=== PATIENT | female | born 1980 | race Caucasian/White ===

== ENCOUNTER 2016-12-12 13:48 | Emergency (ER) | payer OTHER ==
[2016-12-12 14:45] VITALS: BP 109/66
--- NOTE | 2016-12-12 15:30 | UC ---
Complaint Female HPI - HPI Summary HPI Summary: Urinary Pain and burning for 2 days - History Of Current Complaint Chief Complaint: UCGU Stated Complaint: URINARY COMPLAINT Time Seen by Provider: 12/12/16 15:21 Hx Obtained From: Patient Hx Last Menstrual Period: 12/04/16 ?: No Onset/Duration: Sudden Onset, Lasting Days - 2 Timing: Constant Severity Initially: Moderate Severity Currently: Moderate Character: Burning Aggravating Factor(s): Urination Alleviating Factor(s): Nothing Associated Signs And Symptoms: Positive: Negative - Allergies/Home Medications Allergies/Adverse Reactions: Allergies Allergy/AdvReac Type Severity Reaction Status Date / Time Hydrocodone [From Vicodin] Allergy Shortness Verified 12/12/16 14:46 of Breath Iodine Allergy Hives Verified 12/12/16 14:46 Penicillins Allergy Rash Verified 12/12/16 14:46 Povidone Iodine Allergy Hives Verified 12/12/16 14:46 [From Betadine] augmentin Allergy Hives/Diff. Uncoded 12/12/16 14:47 Breathing/I tching PMH/Surg Hx/FS Hx/Imm Hx Previously Healthy: Yes - Surgical History Surgical History: Yes Surgery Procedure, Year, and Place: CSECTION X 2, TUBAL - Family History Known Family History: Positive: None - Social History Occupation: Unemployed Lives: With Family Alcohol Use: None Substance Use Type: None Smoking Status (MU): Former Smoker When Did the Patient Quit Smoking/Using Tobacco: 2009 Review of Systems Constitutional: Negative Skin: Negative Eyes: Negative ENT: Negative Respiratory: Negative Cardiovascular: Negative Gastrointestinal: Negative Genitourinary: Dysuria, Hematuria, Frequency, Urgency Motor: Negative Neurovascular: Negative Musculoskeletal: Negative Neurological: Negative Psychological: Negative Is Patient Immunocompromised?: No All Other Systems Reviewed And Are Negative: Yes Physical Exam Triage Information Reviewed: Yes Appearance: Well-Appearing, No Pain Distress, Well-Nourished Vital Signs: Initial Vital Signs Temp 98 F 12/12/16 14:33 Pulse 57 12/12/16 14:33 Resp 20 12/12/16 14:33 BP 109/66 12/12/16 14:33 Vital Signs Reviewed: Yes Eye Exam: Normal Eyes: Positive: Conjunctiva Clear ENT Exam: Normal ENT: Positive: Normal ENT inspection, Hearing grossly normal, TMs normal. Negative: Nasal congestion, Nasal drainage, Trismus, Muffled/hoarse voice Dental Exam: Normal Neck exam: Normal Neck: Positive: Supple, Nontender Respiratory Exam: Normal Respiratory: Positive: Chest non-tender, No respiratory distress, No accessory muscle use Cardiovascular Exam: Normal Cardiovascular: Positive: RRR, Pulses Normal, Brisk Capillary Refill Abdominal Exam: Normal Abdomen Description: Positive: Nontender, No Organomegaly, Soft. Negative: CVA Tenderness (R), CVA Tenderness (L) Bowel Sounds: Positive: Present Musculoskeletal Exam: Normal Musculoskeletal: Positive: Strength Intact, ROM Intact Neurological Exam: Normal Neurological: Positive: Alert Psychological Exam: Normal Skin Exam: Normal Diagnostics - Laboratory Diagnostic Studies Completed/Ordered: ua-+2 blood and +2 leukoesterase Complaint Female Dx - Course Course Of Treatment: macrobid, increase fluids, pyridium culture urine follow with pcp prn - Differential Dx/Diagnosis Differential Diagnosis/HQI/PQRI: Renal Colic, Sexually Transmitted Disease, Urinary Tract Infection Provider Diagnoses: UTI Discharge - Discharge Plan Condition: Stable Disposition: HOME Prescriptions: Nitrofurantoin Monohyd Macro [Macrobid] 100 mg PO BID #20 cap Patient Education Materials: Phenazopyridine (By mouth), Urinary Tract Infection in Women (ED) Referrals: Lucila SCHILLING,Ga Horan [Physician Transitional Nurse] - If Needed
== END 2016-12-12 15:37 | disposition home or self-care (01) ==
LOC: UCCORT 13:48
DX: N39.0 Urinary tract infection, site not specified (principal); Z88.3 Allergy status to other anti-infective agents; Z88.5 Allergy status to narcotic agent; Z88.0 Allergy status to penicillin; Z87.891 Personal history of nicotine dependence
CPT/HCPCS: 81003; 87086; 99212; G0463

== ENCOUNTER 2017-08-04 09:31 | Emergency (ER) | payer OTHER ==
[2017-08-04 09:54] VITALS: BP 106/60
--- NOTE | 2017-08-04 10:21 | UC ---
Complaint Female HPI - HPI Summary HPI Summary: Pt c/o of recurring vaginal discomfort, pain with urination, odiferous discharge , and pain with sexual intercourse X 1 year. 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 Denies exposure to STD's denies lesions or sores. Denies frequency and urgency with urination. - History Of Current Complaint Chief Complaint: UCGU Stated Complaint: PERSONAL Hx Obtained From: Patient Hx Last Menstrual Period: 07/08/17 ?: No Onset/Duration: Gradual Onset, Lasting Weeks, Still Present Timing: Intermittent, Lasting Weeks Severity Initially: Mild Severity Currently: Mild Pain Intensity: 1 Character: Dull, Burning Aggravating Factor(s): Loco, Urination Alleviating Factor(s): Meds - previously prescribed Associated Signs And Symptoms: Positive: Vaginal Discharge - Risk Factors Ectopic Risk Factor: Negative Ovarian Torsion Risk Factor: Reproductive Age - Allergies/Home Medications Allergies/Adverse Reactions: Allergies Allergy/AdvReac Type Severity Reaction Status Date / Time hydrocodone Allergy Shortness Verified 08/04/17 09:59 of Breath Iodine and Iodide Containing Allergy Hives Verified 08/04/17 09:59 Produc Penicillins Allergy Rash Verified 08/04/17 09:59 augmentin Allergy Hives/Diff. Uncoded 08/04/17 09:59 Breathing/I tching Home Medications: Home Medications L.acidoph,Paracasei, B.lactis [Probiotic] 1 each PO DAILY 08/04/17 [History Confirmed 08/04/17] PMH/Surg Hx/FS Hx/Imm Hx Previously Healthy: Yes - Surgical History Surgical History: Yes Surgery Procedure, Year, and Place: CSECTION X 2, TUBAL - Family History Known Family History: Positive: Cardiac Disease - Social History Occupation: Employed Full-time Lives: With Family Alcohol Use: None Substance Use Type: None Smoking Status (MU): Former Smoker Have You Smoked in the Last Year: No When Did the Patient Quit Smoking/Using Tobacco: 2009 Review of Systems Constitutional: Negative Skin: Negative Eyes: Negative ENT: Negative Respiratory: Negative Cardiovascular: Negative Gastrointestinal: Negative Genitourinary: Dysuria, Vaginal/Penile Burning, Vaginal/Penile Discharge Motor: Negative Neurovascular: Negative Musculoskeletal: Negative Neurological: Negative Psychological: Negative Is Patient Immunocompromised?: No All Other Systems Reviewed And Are Negative: Yes Physical Exam Triage Information Reviewed: Yes Appearance: Well-Appearing Vital Signs: Initial Vital Signs Temp 97.9 F 08/04/17 09:45 Pulse 59 08/04/17 09:45 Resp 17 08/04/17 09:45 BP 106/60 08/04/17 09:45 Pulse Ox 99 08/04/17 09:45 Vital Signs Reviewed: Yes Eye Exam: Normal ENT Exam: Normal Dental Exam: Normal Neck exam: Normal Respiratory: Positive: No respiratory distress Abdominal Exam: Normal Pelvic Exam: Positive: Other - declined Musculoskeletal Exam: Normal Neurological Exam: Normal Psychological Exam: Normal Skin Exam: Normal Complaint Female Dx - Course Course Of Treatment: 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 Pt agreed to all testing and agreed to do self swab for Affirm. - Differential Dx/Diagnosis Differential Diagnosis/HQI/PQRI: Urinary Tract Infection Provider Diagnoses: vaginitis Discharge - Sign-Out/Discharge Documenting (check all that apply): Discharge/Admit/Transfer - Discharge Plan Condition: Stable Disposition: HOME Prescriptions: metroNIDAZOLE VAGINAL 0.75%* 1 applic VAGINAL BEDTIME #5 tube Patient Education Materials: Vaginitis (ED) Referrals: No Primary Care Phys,NOPCP [Primary Care Provider] - If Needed - Billing Disposition and Condition Condition: STABLE Disposition: HOME
== END 2017-08-04 10:58 | disposition home or self-care (01) ==
LOC: UCCORT 09:31
DX: N76.0 Acute vaginitis (principal); B96.89 Other specified bacterial agents as the cause of diseases classified elsewhere; Z88.3 Allergy status to other anti-infective agents; Z88.5 Allergy status to narcotic agent; Z88.0 Allergy status to penicillin; Z88.8 Allergy status to other drugs, medicaments and biological substances; Z87.891 Personal history of nicotine dependence
CPT/HCPCS: 81003; 87480; 87491; 87510; 87591; 87660; 99212; G0463

== ENCOUNTER 2018-01-03 14:06 | Emergency (ER) | payer OTHER ==
--- OUTSIDE RECORDS SUMMARY | 2018-01-03 14:15 | XMS REPORT ---
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 Unavailable Ainsley Mccauley MD Primary Care Physician Unavailable Payers Type Date Identification Numbers Payment Provider Subscriber Workers Compensation Onset: Policy Number: Alec Valdez 2017 [id number] PayID: [id number] [address] [place] [address] Problems Description No Information Family History Date Family Member(s) Problem(s) Comments General Stroke General Cancer Social History Type Date Description Comments Lives With Spouse Occupation Currently Working [employer] ETOH Use Denies alcohol use Smoking Patient has never smoked Exercise Type/Frequency Exercises sporadically Allergies, Adverse Reactions, Alerts Date Description Reaction Status Severity Comments 11/06/2017 Vicodin active 11/06/2017 Augmentin active 11/06/2017 Penicillin active 11/06/2017 Betadine active 11/06/2017 Lidocaine active topical only Medications Medication Date Status Form Strength Qnty SIG Indications Ordering Provider Ibuprofen 12/26/19 Active Tablets 600mg 90tabs 1 tab Blair Ipson, 18 three PA times a day as needed pain Prozac Active Capsules 20mg 1 by mouth Unknown 00 every day Vital Signs Date Vital Result Comment 12/25/2017 Height 66 inches 5'6" Weight 150.00 lb BP Systolic Sitting 102 mmHg BP Diastolic Sitting 62 mmHg Respiratory Rate 16 /min Pain Level 3 BMI (Body Mass Index) 24.2 kg/m2 11/06/2017 Height 66 inches 5'6" Weight 150.00 lb BP Systolic Sitting 124 mmHg BP Diastolic Sitting 68 mmHg Respiratory Rate 18 /min Pain Level 3 numbness occassionally BMI (Body Mass Index) 24.2 kg/m2 Results Description No Information Procedures Description No Information Encounters Type Date Location Provider CPT E/M Dx Office Visit 11/06/2017 [place] [address] M24.831 1:15p [facility] [place] M24.831 M25.531 M25.531 M24.831 Plan of Care Future Appointment(s):02/05/2018 11:00 am - Anand Antoine MD at [facility]
--- OUTSIDE RECORDS SUMMARY | 2018-01-03 14:15 | XMS REPORT ---
:1980 External Reference #:[id number] Author Organization [facility] Address [address] [place] [address] Phone [phone] Care Team Providers Name Role Phone Rubens Dorado M.D. 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 Payers Type Date Identification Numbers Payment Provider Subscriber Workers Compensation Effective: Policy Number: Serina Valdez 2017 [id number] Onset: 2017 Group Name: [address] PayID: [id number] [place] [address] Commercial Policy Number: [id number] [employer] Rosalia Valdez PayID: [id number] [address] [place] [address] Problems Date Description Provider Status Onset: 11/05/2017 Contusion of elbow Bhavana Bettencourt PA Active Onset: 10/22/2017 Contusion of wrist Bhavana Bettencourt PA Active Onset: 10/22/2017 Sprain of radiocarpal ligament Bhavana Bettencourt PA Active Onset: 03/06/2015 Arthralgia of the ankle and/or Rubens Dorado M.D. Active foot Onset: 04/05/2014 Liver function tests abnormal Louis De León Active M.D. Onset: 03/08/2014 Enthesopathy of knee Kendall Hart MD, JULIETA Active Onset: 02/24/2014 Pes planus Kendall Hart MD, JULIETA Active Onset: 02/24/2014 Enthesopathy Kendall Hart MD, JULIETA Active Onset: 08/23/2012 Fracture therapy follow-up Kendall Hart MD, JULIETA Active Onset: 07/30/2012 Aftercare For Healing Traumatic Kendall Hart MD, JULIETA Active Fracture Of Other Bone Onset: 07/09/2012 Closed fracture of lateral Kendall Hart MD, JULIETA Active malleolus Onset: 03/25/2012 Neck sprain Daryn Yung MD Active Family History Date Family Member(s) Problem(s) Comments General Cancer siblings Father Cancer Mother Cancer Grandfather Cancer Grandmother Cancer Social History Type Date Description Comments Lives With Children Saul and Annad Lives With Maren Murray Patient follows no dietary restrictions 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 Working [employer] Cigarette Use Quit ETOH Use Has consumed alcohol in the past Recreational Drug Use Former Drug User Daily Caffeine Current Caffeine User Daily Allergies, Adverse Reactions, Alerts Date Description Reaction Status Severity Comments 03/25/2012 Iodine active 03/25/2012 Betadine active 03/25/2012 Hydrocodone active resp depression c half tab 10/08/2017 Penicillin active 10/08/2017 Augmentin active 10/08/2017 Shellfish-Derived active Products 10/08/2017 Vicodin active Medications Medication Date Status Form Strength Qnty SIG Indications Ordering Provider Fluoxetine HCL / Active Capsules 20mg 30cap 1 by Unknown 0000 s mouth every morning and 1 at noon Meloxicam 06/21/ Hx Tablets 15mg 30tab 1 po q Hailey, 2013 day c Kendall Horan, 02/24/ JULIETA GOTTI 2013 Ibuprofen 00/00/ Hx 600mg Unknown 0000 Metronidazole 0000/ Hx 500mg Unknown 0000 Terbutaline / Hx 2.5mg Lauri, Sulfate 0000 Jacqueiline R, ENVIRONMENTAL COMPLIANCE INSPECTOR PNV-Dha 00/00/ Hx 27-0.6-0.4 Unknown 0000 -300mg Prenate Dha 00/00/ Hx 27-0.6-0.4 Unknown 0000 -300mg Prozac 00/00/ Hx Capsules 1 po qd Unknown 0000 Naproxen 00/00/ Hx Tablets DR Unknown 0000 Control 00/00/ Hx Unknown 0000 - 2012 Muscle Relaxer /00/ Hx Unknown 0000 Flexeril 00/00/ Hx Tablets 10mg Unknown 0000 Fluoxetine HCL 00/ Hx Capsules 10mg 30cap 1 po qd Unknown - s 2017 00/ Hx Tablets 27-0.8mg Unknown 0000 - 2013 Iron 100 Plus / Hx Tablets 100-250-0. Unknown 0000 - 025-1mg 2013 Vital Signs Date Vital Result Comment 11/05/2017 BP Systolic Sitting Right Arm 90 mmHg BP Diastolic Sitting Right Arm 61 mmHg Body Temperature 98.2 F Heart Rate 81 /min Respiratory Rate 17 /min Height 69 inches 5'9" Weight 150.00 lb BMI (Body Mass Index) 22.1 kg/m2 BSA (Body Surface Area) 1.83 m2 Norris body weight in kilograms 66 O2 % BldC Oximetry 97 % 10/22/2017 BP Systolic Sitting Right Arm 99 mmHg BP Diastolic Sitting Right Arm 67 mmHg Body Temperature 98.6 F Heart Rate 60 /min Height 69 inches 5'9" Weight 153.00 lb BMI (Body Mass Index) 22.6 kg/m2 BSA (Body Surface Area) 1.84 m2 Norris body weight in kilograms 66 O2 % BldC Oximetry 96 % 10/08/2017 BP Systolic Sitting Left Arm 95 mmHg BP Diastolic Sitting Left Arm 67 mmHg Body Temperature 98.3 F Heart Rate 57 /min Respiratory Rate 17 /min Height 69 inches 5'9" Weight 152.00 lb BMI (Body Mass Index) 22.4 kg/m2 BSA (Body Surface Area) 1.84 m2 Norris body weight in kilograms 66 O2 % BldC Oximetry 98 % 01/15/2015 BP Systolic Sitting Right Arm 98 mmHg BP Diastolic Sitting Right Arm 61 mmHg Heart Rate 74 /min Height 69 inches 5'9" Weight 137.00 lb BMI (Body Mass Index) 20.2 kg/m2 BSA (Body Surface Area) 1.76 m2 04/05/2014 Height 66 inches 5'6" Weight 136.00 lb BMI (Body Mass Index) 21.9 kg/m2 BSA (Body Surface Area) 1.70 m2 03/25/2012 BP Systolic Sitting Left Arm 104 mmHg BP Diastolic Sitting Left Arm 60 mmHg Height 67 inches 5'7" Weight 139.00 lb BMI (Body Mass Index) 21.8 kg/m2 Results Description No Information Procedures Date CPT Code Description Status 11/05/2017 30221 Radiology, Elbow Complete Completed 06/23/2016 20546 Echocardiogram Complete Completed 08/28/2015 86850 Nerve Conduction 5-6 Studies Completed 08/28/2015 33345 Needle Electromyography Complete, Five Or More Muscles Completed Studied 07/05/2015 11919 Radiology, Foot, Complete-3 Views Completed 07/05/2015 76999 Radiology, Foot, Complete-3 Views Completed 01/15/2015 36110 Radiology, Ankle Complete Completed 03/08/2014 38339 Radiology, Knee 3 Views Completed 02/24/2014 12266 Radiology, Ankle Complete Completed 06/21/2013 44432 Radiology, Shoulder: Two Views (Sso) Completed 06/21/2013 58229 Radiology, Shoulder: Two Views (Sso) Completed 05/20/2013 61388 Anesthesia, Delivery Completed 08/23/2012 26199 Radiology, Ankle Complete Completed 07/09/2012 89788 Fracture closed distal fib w/o manipulation Completed Encounters Type Date Location Provider CPT E/M Dx Office Visit 11/05/2017 1:30p [place] [address] M25.521 S63.521D S50.01xA Office Visit 10/22/2017 9:00a [place] [address] S63.521A S60.211A Office Visit 10/08/2017 10:00a Orthopaedic Office Rubens Dorado M.D. 80088 M25.531 Office Visit 09/10/2015 1:30p Orthopaedic Office Rubens Dorado M.D. 07940 M25.571 Office Visit 07/05/2015 11:15a Orthopaedic Office Rubens Dorado M.D. 02105 M25.571 M25.572 Office Visit 03/06/2015 1:00p Orthopaedic Office Rubens Dorado M.D. 48072 M25.571 Office Visit 01/15/2015 11:15a Orthopaedic Office Rubens Dorado M.D. 06880 M25.571 Office Visit 04/05/2014 9:30a Surgical Office [facility] 52173 794.8 Louis Dawn M.D. Office Visit 03/08/2014 10:00a Orthopaedic Office Kendall Hart, [address] 719.46 , FACS 726.60 Office Visit 02/24/2014 11:15a [place], [address] 726.90 [facility] 734 824.2 Office Visit 06/21/2013 10:30a Orthopaedic Office Cindy GoddardJojo, [address]36 726.10 [facility] 719.41 Office Visit 03/25/2012 11:00a [place] [address] 847.0 Office Visit 02/20/2009 10:30a [place] [address] 723.4 726.90 Plan of Care 11/05/2017 - Bhavana Bettencourt, PAM25.521 Pain in right elbowComments:Patient will proceed with activities as tolerated with the elbow, should be cautious with lifting. I did provide her with an Nic wrap to see if compression was helpful.Follow up:prnS63.521D Sprain of radiocarpal joint of right wrist, subs encntrComments:Patient is still having a lot of pain that is not resolving in the wrist. With the findings on the MRI I am recommending referral to hand surgery to see if surgery is indicated. Return to our office as needed.S50.01xA Contusion of right elbow, initial encounterAllReferral:Anand Antoine MD, Surgery,Orthopedic
[2018-01-03 14:42] VITALS: BP 100/60
--- NOTE | 2018-01-03 15:34 | UC ---
Complaint Female HPI - HPI Summary HPI Summary: awoke with pain and burning with urination also has hematuria no fevers chills nausea or vomiting - History Of Current Complaint Chief Complaint: UCGU Stated Complaint: URINARY COMPLAINT Time Seen by Provider: 01/03/18 15:14 Hx Obtained From: Patient Hx Last Menstrual Period: 12/21/17 ?: No Onset/Duration: Sudden Onset, Lasting Days - 1, Still Present Timing: Constant Severity Initially: Mild Severity Currently: Mild Character: Burning Aggravating Factor(s): Urination Alleviating Factor(s): Nothing Associated Signs And Symptoms: Positive: Negative - Allergies/Home Medications Allergies/Adverse Reactions: Allergies Allergy/AdvReac Type Severity Reaction Status Date / Time hydrocodone Allergy Shortness Verified 01/03/18 14:38 of Breath Iodine and Iodide Containing Allergy Hives Verified 01/03/18 14:38 Produc Penicillins Allergy Rash Verified 01/03/18 14:38 augmentin Allergy Hives/Diff. Uncoded 01/03/18 14:38 Breathing/I tching PMH/Surg Hx/FS Hx/Imm Hx Previously Healthy: No Psychological History: Depression - Surgical History Surgical History: Yes Surgery Procedure, Year, and Place: CSECTION X 2, TUBAL - Family History Known Family History: Positive: None, Cardiac Disease - Social History Occupation: Employed Full-time Lives: With Family Alcohol Use: None Substance Use Type: None Smoking Status (MU): Former Smoker Have You Smoked in the Last Year: No When Did the Patient Quit Smoking/Using Tobacco: 2009 Review of Systems Constitutional: Negative Skin: Negative Eyes: Negative ENT: Negative Respiratory: Negative Cardiovascular: Negative Gastrointestinal: Negative Genitourinary: Dysuria, Hematuria, Frequency, Urgency Motor: Negative Neurovascular: Negative Musculoskeletal: Negative Neurological: Negative Psychological: Negative Is Patient Immunocompromised?: No All Other Systems Reviewed And Are Negative: Yes Physical Exam Triage Information Reviewed: Yes Appearance: Well-Appearing, No Pain Distress, Well-Nourished Vital Signs: Initial Vital Signs Temp 97.4 F 01/03/18 14:37 Pulse 65 01/03/18 14:37 Resp 14 01/03/18 14:37 BP 100/60 01/03/18 14:37 Pulse Ox 100 01/03/18 14:37 Vital Signs Reviewed: Yes Eye Exam: Normal Eyes: Positive: Conjunctiva Clear ENT Exam: Normal ENT: Positive: Normal ENT inspection, Hearing grossly normal, Pharynx normal. Negative: Nasal congestion, Trismus, Muffled voice, Hoarse voice Dental Exam: Normal Neck exam: Normal Neck: Positive: Supple, Nontender, No Lymphadenopathy Respiratory Exam: Normal Respiratory: Positive: Chest non-tender, No respiratory distress, No accessory muscle use Cardiovascular Exam: Normal Cardiovascular: Positive: RRR, Pulses Normal, Brisk Capillary Refill Abdominal Exam: Normal Abdomen Description: Negative: CVA Tenderness (R), CVA Tenderness (L) Musculoskeletal Exam: Normal Musculoskeletal: Positive: Strength Intact, ROM Intact Neurological Exam: Normal Neurological: Positive: Alert, Muscle Tone Normal Psychological Exam: Normal Skin Exam: Normal Complaint Female Dx - Course Course Of Treatment: culture urine, increase fluids, macrobid and pyridium follow with pcp next week - Differential Dx/Diagnosis Provider Diagnoses: UTI Discharge - Sign-Out/Discharge Documenting (check all that apply): Patient Departure All imaging exams completed and their final reports reviewed: No Studies - Discharge Plan Condition: Stable Disposition: HOME Prescriptions: Nitrofurantoin Monohyd/M-Cryst [Macrobid 100 mg Capsule] 100 mg PO BID #10 cap Phenazopyridine TAB* [Pyridium 100 mg TAB*] 100 mg PO TID PRN #6 tab PRN Reason: urinary pain and burning Patient Education Materials: Phenazopyridine (By mouth), Urinary Tract Infection in Women (ED) Referrals: No Primary Care Phys,NOPCP [Primary Care Provider] - SAÚL Mcginnis [Family Provider] - 1 Week - Billing Disposition and Condition Condition: STABLE Disposition: Home
--- NOTE | 2018-01-06 08:19 | UC ---
- Progress Note Progress Note: + E coli On Macrobid await sensitivity Lj 01/06/18 Discharge - Sign-Out/Discharge Documenting (check all that apply): Post-Discharge Follow Up All imaging exams completed and their final reports reviewed: No Studies - Discharge Plan Condition: Stable Disposition: HOME Prescriptions: Nitrofurantoin Monohyd/M-Cryst [Macrobid 100 mg Capsule] 100 mg PO BID #10 cap Phenazopyridine TAB* [Pyridium 100 mg TAB*] 100 mg PO TID PRN #6 tab PRN Reason: urinary pain and burning Patient Education Materials: Phenazopyridine (By mouth), Urinary Tract Infection in Women (ED) Referrals: SAÚL Mcginnis [Family Provider] - 1 Week No Primary Care Phys,NOPCP [Primary Care Provider] - - Billing Disposition and Condition Condition: STABLE Disposition: Home
== END 2018-01-03 15:40 | disposition home or self-care (01) ==
LOC: UCCORT 14:06
DX: N39.0 Urinary tract infection, site not specified (principal); Z88.5 Allergy status to narcotic agent; Z88.0 Allergy status to penicillin; Z88.1 Allergy status to other antibiotic agents; Z87.891 Personal history of nicotine dependence
CPT/HCPCS: 81003; 84702; 87077; 87086; 87186; 99212; G0463

== ENCOUNTER 2018-01-17 13:05 | Emergency (ER) | payer OTHER ==
[2018-01-17 13:19] VITALS: BP 103/57
--- NOTE | 2018-01-17 14:38 | UC ---
Complaint Female HPI - HPI Summary HPI Summary: Pt presents with sudden onset of urinary frequency, urgency and dysuria. Pt reports that she had UTI diagnosed two weeks ago. - History Of Current Complaint Chief Complaint: UCGU Stated Complaint: URINARY COMPLAINT Time Seen by Provider: 01/17/18 13:21 Hx Obtained From: Patient Hx Last Menstrual Period: 12/21/17 ?: No Onset/Duration: Sudden Onset, Lasting Hours Timing: Constant Severity Initially: Mild Severity Currently: Mild Pain Intensity: 3 Pain Scale Used: 0-10 Numeric Character: Sharp, Burning Aggravating Factor(s): Urination - Risk Factors Ectopic Risk Factor: Negative Ovarian Torsion Risk Factor: Reproductive Age - Allergies/Home Medications Allergies/Adverse Reactions: Allergies Allergy/AdvReac Type Severity Reaction Status Date / Time hydrocodone Allergy Shortness Verified 01/03/18 14:38 of Breath Iodine and Iodide Containing Allergy Hives Verified 01/03/18 14:38 Produc Penicillins Allergy Rash Verified 01/03/18 14:38 augmentin Allergy Hives/Diff. Uncoded 01/03/18 14:38 Breathing/I tching Home Medications: Home Medications Citalopram TAB* [Celexa TAB*] 10 mg PO DAILY 01/17/18 [History Confirmed ] PMH/Surg Hx/FS Hx/Imm Hx Previously Healthy: Yes - Surgical History Surgical History: Yes Surgery Procedure, Year, and Place: CSECTION X 2, TUBAL - Family History Known Family History: Positive: Cardiac Disease - Social History Occupation: Employed Full-time Lives: With Family Alcohol Use: None Substance Use Type: None Smoking Status (MU): Former Smoker Have You Smoked in the Last Year: No When Did the Patient Quit Smoking/Using Tobacco: 2009 Review of Systems Constitutional: Negative Skin: Negative Eyes: Negative ENT: Negative Respiratory: Negative Cardiovascular: Negative Gastrointestinal: Negative Genitourinary: Dysuria, Frequency, Urgency Motor: Negative Neurovascular: Negative Musculoskeletal: Negative Neurological: Negative Psychological: Negative Is Patient Immunocompromised?: No All Other Systems Reviewed And Are Negative: Yes Physical Exam Triage Information Reviewed: Yes Appearance: Well-Appearing Vital Signs: Initial Vital Signs Temp 98.2 F 01/17/18 13:13 Pulse 58 01/17/18 13:13 Resp 17 01/17/18 13:13 BP 103/57 01/17/18 13:13 Pulse Ox 100 01/17/18 13:13 Vital Signs Reviewed: Yes Eye Exam: Normal ENT Exam: Normal Dental Exam: Normal Neck exam: Normal Respiratory: Positive: No respiratory distress Musculoskeletal Exam: Normal Neurological Exam: Normal Psychological Exam: Normal Skin Exam: Normal Complaint Female Dx - Course Course Of Treatment: I disucssed wih the pt the need to follo wup with PCP as well as ways to prevent UTI's. - Differential Dx/Diagnosis Differential Diagnosis/HQI/PQRI: Urinary Tract Infection Provider Diagnoses: UTI Discharge - Sign-Out/Discharge Documenting (check all that apply): Patient Departure All imaging exams completed and their final reports reviewed: No Studies - Discharge Plan Condition: Stable Disposition: HOME Prescriptions: Fluconazole [Diflucan 150 MG (NF)] 150 mg PO ONCE #2 tab Phenazopyridine TAB* [Pyridium 100 mg TAB*] 100 mg PO Q8H #6 tab Sulfamethox/Trimethoprim DS* [Bactrim DS 800/160 TAB*] 1 tab PO Q12H #14 tab Patient Education Materials: Urinary Tract Infection in Women (ED) Referrals: Nydia Jesus MD [Primary Care Provider] - As Soon As Possible - Billing Disposition and Condition Condition: STABLE Disposition: Home
--- NOTE | 2018-01-20 07:19 | UC ---
- Progress Note Progress Note: + E. Coli Pt on sulfa await sensitivity ljj 01/20/18 Discharge - Sign-Out/Discharge Documenting (check all that apply): Post-Discharge Follow Up All imaging exams completed and their final reports reviewed: No Studies - Discharge Plan Condition: Stable Disposition: HOME Prescriptions: Fluconazole [Diflucan 150 MG (NF)] 150 mg PO ONCE #2 tab Phenazopyridine TAB* [Pyridium 100 mg TAB*] 100 mg PO Q8H #6 tab Sulfamethox/Trimethoprim DS* [Bactrim DS 800/160 TAB*] 1 tab PO Q12H #14 tab Patient Education Materials: Urinary Tract Infection in Women (ED) Referrals: Nydia Jesus MD [Primary Care Provider] - As Soon As Possible - Billing Disposition and Condition Condition: STABLE Disposition: Home
== END 2018-01-17 13:43 | disposition home or self-care (01) ==
LOC: UCCORT 13:05
DX: N39.0 Urinary tract infection, site not specified (principal); Z88.5 Allergy status to narcotic agent; Z88.0 Allergy status to penicillin; Z88.8 Allergy status to other drugs, medicaments and biological substances; Z88.1 Allergy status to other antibiotic agents; Z87.891 Personal history of nicotine dependence
CPT/HCPCS: 81003; 87077; 87086; 87186; 99212; G0463

== ENCOUNTER 2018-02-09 08:43 | Emergency (ER) | payer OTHER ==
[2018-02-09 09:25] VITALS: BP 101/69
--- NOTE | 2018-02-09 10:43 | UC ---
Abdominal Pain Female HPI - HPI Summary HPI Summary: lower back pain x 2 days dysuria, urinary frequency , urgency , lower abdominal pain hx of frequent utis, pyelonephritis no fever, + chills, + nausea and vomiting - History of Current Complaint Chief Complaint: UCGI Stated Complaint: URINARY Time Seen by Provider: 02/09/18 09:35 Hx Obtained From: Patient Hx Last Menstrual Period: "last week" ?: No Onset/Duration: Gradual Onset, Lasting Days - 2, Still Present Timing: Constant Severity Initially: Moderate Severity Currently: Moderate Pain Intensity: 3 Pain Scale Used: 0-10 Numeric Location: Suprapubic Radiates: Yes Radiates to: Back Character: Burning Aggravating Factor(s): Movement Alleviating Factor(s): Nothing Associated Signs and Symptoms: Positive: Urinary Symptoms, Nausea, Vomiting. Negative: Diaphoresis, Fever, Cough, Decreased Appetite, Vaginal Bleeding, Vaginal Discharge, Diarrhea Allergies/Adverse Reactions: Allergies Allergy/AdvReac Type Severity Reaction Status Date / Time clavulanic acid Allergy Difficulty Verified 02/09/18 09:19 Breathing/Wheezing hydrocodone Allergy Shortness Verified 01/03/18 14:38 of Breath Iodine and Iodide Containing Allergy Hives Verified 01/03/18 14:38 Produc Penicillins Allergy Rash Verified 01/03/18 14:38 sulfamethoxazole AdvReac Vaginal Verified 02/09/18 09:19 [From Bactrim] "Discomfort" and "Heat" trimethoprim [From Bactrim] AdvReac Vaginal Verified 02/09/18 09:19 "Discomfort" and "Heat" Home Medications: Home Medications Citalopram TAB* [CeleXA TAB*] 20 mg PO DAILY 02/09/18 [History Confirmed ] Phenazopyridine TAB* [Pyridium 100 mg TAB*] 100 mg PO TID 02/09/18 [History Confirmed 02/09/18] metroNIDAZOLE [Flagyl 500 MG TAB] 500 mg PO BID PRN 02/09/18 [History Confirmed 02/09/18] PMH/Surg Hx/FS Hx/Imm Hx - Additional Past Medical History Additional PMH: POST DEPRESSION; Marfan's syndrome - connective tissue disorder; ankle fracture Psychological History: Anxiety, Depression - Surgical History Surgical History: Yes Surgery Procedure, Year, and Place: CSECTION X 2, TUBAL - Family History Known Family History: Positive: Cardiac Disease - Social History Alcohol Use: None Substance Use Type: None Smoking Status (MU): Former Smoker Length of Time of Smoking/Using Tobacco: 1 1/2 - 3 PPD x 19 Years Have You Smoked in the Last Year: No When Did the Patient Quit Smoking/Using Tobacco: ~2009 Review of Systems All Other Systems Reviewed And Are Negative: Yes Constitutional: Positive: Negative Skin: Positive: Negative Eyes: Positive: Negative ENT: Positive: Negative Respiratory: Positive: Negative Gastrointestinal: Positive: Abdominal Pain Genitourinary: Positive: Dysuria, Frequency, Urgency Is Patient Immunocompromised?: No Physical Exam Triage Information Reviewed: Yes Appearance: Well-Nourished, Pain Distress Vital Signs: Initial Vital Signs Temp 98.3 F 02/09/18 09:13 Pulse 72 02/09/18 09:13 Resp 16 02/09/18 09:13 BP 101/69 02/09/18 09:13 Pulse Ox 100 02/09/18 09:13 Vital Signs Reviewed: Yes Eye Exam: Normal Eyes: Positive: Conjunctiva Clear ENT: Positive: Normal ENT inspection, Hearing grossly normal, Pharynx normal Neck: Positive: Supple, Nontender, No Lymphadenopathy Respiratory: Positive: Chest non-tender, Lungs clear, Normal breath sounds Cardiovascular: Positive: RRR, No Murmur, Pulses Normal Abdomen Description: Positive: Nontender, Soft. Negative: CVA Tenderness (R), CVA Tenderness (L), Distended, Guarding Bowel Sounds: Negative: Present Diagnostics - Laboratory Diagnostic Studies Completed/Ordered: ct abd / pelvic : IMPRESSION: NO HYDRONEPHROSIS OR NEPHROLITHIASIS. NO ACUTE NONCONTRAST CT PATHOLOGY OF THE VISUALIZED. ABDOMEN OR PELVIS. Abd Pain Female Course/Dx - Differential Dx/Diagnosis Differential Diagnosis: Irritable Bowel Syndrome, Ovarian Cyst Provider Diagnoses: uti Discharge - Sign-Out/Discharge Documenting (check all that apply): Patient Departure All imaging exams completed and their final reports reviewed: Yes - Discharge Plan Condition: Stable Disposition: HOME Prescriptions: Nitrofurantoin Monohyd/M-Cryst [Macrobid 100 mg Capsule] 100 mg PO BID #20 cap Patient Education Materials: Urinary Tract Infection in Women (ED) Referrals: Nydia Jesus MD [Primary Care Provider] - 7 Days - Billing Disposition and Condition Condition: STABLE Disposition: Home
--- NOTE | 2018-02-11 07:33 | UC ---
- Progress Note Progress Note: + E. coli on Macrobid await sensitivity no change levij 02/11/18 Discharge - Sign-Out/Discharge Documenting (check all that apply): Post-Discharge Follow Up All imaging exams completed and their final reports reviewed: Yes - Discharge Plan Condition: Stable Disposition: HOME Prescriptions: Nitrofurantoin Monohyd/M-Cryst [Macrobid 100 mg Capsule] 100 mg PO BID #20 cap Patient Education Materials: Urinary Tract Infection in Women (ED) Referrals: Nydia Jesus MD [Primary Care Provider] - 7 Days - Billing Disposition and Condition Condition: STABLE Disposition: Home
--- NOTE | 2018-02-11 12:43 | UC ---
- Progress Note Progress Note: Pt with + E col sensitive to macrobid on macrobid no change 02/11/2018 Discharge - Sign-Out/Discharge Documenting (check all that apply): Post-Discharge Follow Up All imaging exams completed and their final reports reviewed: Yes - Discharge Plan Condition: Stable Disposition: HOME Prescriptions: Nitrofurantoin Monohyd/M-Cryst [Macrobid 100 mg Capsule] 100 mg PO BID #20 cap Patient Education Materials: Urinary Tract Infection in Women (ED) Referrals: Nydia Jesus MD [Primary Care Provider] - 7 Days - Billing Disposition and Condition Condition: STABLE Disposition: Home
== END 2018-02-09 10:38 | disposition home or self-care (01) ==
LOC: UCCORT 08:43
DX: N39.0 Urinary tract infection, site not specified (principal); F41.9 Anxiety disorder, unspecified; Z88.1 Allergy status to other antibiotic agents; Z88.5 Allergy status to narcotic agent; Z88.8 Allergy status to other drugs, medicaments and biological substances; Z88.0 Allergy status to penicillin; Z88.2 Allergy status to sulfonamides; Z79.899 Other long term (current) drug therapy; Z87.891 Personal history of nicotine dependence
CPT/HCPCS: 74176; 87077; 87086; 87186; 99212; G0463

== ENCOUNTER 2018-10-11 15:45 | Emergency (ER) | payer OTHER ==
--- OUTSIDE RECORDS SUMMARY | 2018-10-11 15:59 | XMS REPORT | Continuity of Care Document ---
:1980 External Reference #:[id number] Author Name Tayo Branch M.D. 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 Onset: 06/22/2018 Bladder muscle dysfunction - Tayo Branch M.D. Onset: 04/22/2018 overactive Urinary tract infectious disease Tayo Branch M.D. Onset: 04/22/2018 Contusion of elbow Bhavana Bettencourt PA Onset: 11/05/2017 Contusion of wrist Bhavana Bettencourt PA Onset: 10/22/2017 Sprain of radiocarpal ligament Bhavana Bettencourt PA Onset: 10/22/2017 Arthralgia of the ankle and/or foot Rubens Dorado M.D. Onset: 03/06/2015 Liver function tests abnormal Louis De León M.D. Onset: 2014 Enthesopathy of knee Kendall Hart MD, FACS Onset: 03/08/2014 Talipes planus Kendall Hart MD, FACS Onset: 02/24/2014 Enthesopathy Kendall Hart MD, FACS Onset: 02/24/2014 Fracture therapy follow-up Kendall Hart MD, FACS Onset: 08/23/2012 Aftercare For Healing Traumatic Kendall Hart MD, FACS Onset: 07/30/2012 Fracture Of Other Bone Closed fracture of lateral Kendall Hart MD, FACS Onset: 07/09/2012 malleolus Neck sprain Daryn Yung MD Onset: 03/25/2012 Family History Date Family Member(s) Observation Comments General Cancer siblings Father Cancer Mother Cancer Grandfather Cancer Grandmother Cancer Social History Type Date Description Comments Sex Unknown Lives With Children Saul and Anand Lives With Maren Murray Patient follows no dietary restrictions 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 Working 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 [employer] Tobacco Use Start: Unknown End: Quit Unknown ETOH Use Has consumed alcohol in the past Tobacco Use Start: Unknown Patient denies history of smoking Recreational Drug Use Denies Drug Use Smoking Status Reviewed: 09/06/18 Patient denies history of smoking Allergies, Adverse Reactions, Alerts Active Allergies Reaction Severity Comments Date Iodine 03/25/2012 Betadine 03/25/2012 Hydrocodone resp depression c half tab 03/25/2012 Penicillin 10/08/2017 Augmentin 10/08/2017 Shellfish-Derived Products 10/08/2017 Vicodin 10/08/2017 Medications Active Medications SIG Qnty Indications Ordering Provider Date Tolterodine Tartrate ER 1 by mouth 30caps N32.81 Tayo Branch, 2018 4mg every day M.D. Caps ER 24HR Citalopram Hydrobromide 1 tab daily Ann Marie, 20mg MD Nydia Tablets Nitrofurantoin prn Ann Marie, Monohydrate/Macrocrystal MD Nydia s 100mg Capsules Ginkgo Biloba Unknown 100mg Capsules History Medications Meloxicam 1 po q day c 30tabs Kendall Hart, 06/21/2013 - 15mg Tablets food JULIETA GOTTI 02/24/2014 Metronidazole take 1 tab daily Nydia Jesus, - 500mg 05/20/2018 Tablets Fluoxetine HCL 1 by mouth every 30caps Unknown - 20mg morning and 1 at 04/22/2018 Capsules noon Iron 100 Plus Unknown - 02/24/2014 100-250-0.025-1mg Tablets Unknown - 27-0.8mg Tablets 02/24/2014 Fluoxetine HCL 1 po qd 30caps Unknown - 10mg 10/08/2017 Capsules Flexeril Unknown - 10mg Tablets Unknown Muscle Relaxer Unknown - Unknown Control Unknown - 07/30/2012 Naproxen Unknown - Tablets DR Unknown Prozac 1 po qd Unknown - Capsules Unknown Prenate Dha Unknown - Unknown 27-0.6-0.4-300mg PNV-Dha Unknown - 27-0.6-0.4-300mg Unknown Terbutaline Sulfate LauriKailey raoiline - 2.5mg R, [employer] ENG[employer]ER Unknown Metronidazole Unknown - 500mg Unknown Ibuprofen Unknown - 600mg Unknown Vital Signs Date Vital Result Comment 09/30/2018 2:18pm BP Systolic 100 mmHg BP Diastolic 62 mmHg Body Temperature 97.2 F Heart Rate 63 /min Respiratory Rate 16 /min Height 66 inches 5'6" Weight 152.00 lb BMI (Body Mass Index) 24.5 kg/m2 BSA (Body Surface Area) 1.78 m2 [place] body weight in kilograms 59 kg O2 % BldC Oximetry 95 % Pain Level 0 06/22/2018 8:59am BP Systolic 105 mmHg BP Diastolic 69 mmHg Body Temperature 98.0 F Heart Rate 73 /min Respiratory Rate 16 /min Height 66 inches 5'6" Weight 150.50 lb BMI (Body Mass Index) 24.3 kg/m2 BSA (Body Surface Area) 1.77 m2 [place] body weight in kilograms 59 kg O2 % BldC Oximetry 98 % Pain Level 1 Bladder pain 05/20/2018 9:05am BP Systolic 104 mmHg BP Diastolic 57 mmHg Body Temperature 97.4 F Heart Rate 68 /min Height 66 inches 5'6" Weight 152.00 lb BMI (Body Mass Index) 24.5 kg/m2 BSA (Body Surface Area) 1.78 m2 [place] body weight in kilograms 59 kg O2 % BldC Oximetry 97 % 04/22/2018 8:30am BP Systolic 96 mmHg BP Diastolic 62 mmHg Body Temperature 98.3 F Heart Rate 65 /min Respiratory Rate 18 /min Height 69 inches 5'9" Weight 151.00 lb BMI (Body Mass Index) 22.3 kg/m2 BSA (Body Surface Area) 1.83 m2 [place] body weight in kilograms 66 kg O2 % BldC Oximetry 97 % 11/05/2017 1:28pm BP Systolic Sitting Right Arm 90 mmHg BP Diastolic Sitting Right Arm 61 mmHg Body Temperature 98.2 F Heart Rate 81 /min Respiratory Rate 17 /min Height 69 inches 5'9" Weight 150.00 lb BMI (Body Mass Index) 22.1 kg/m2 BSA (Body Surface Area) 1.83 m2 [place] body weight in kilograms 66 kg O2 % BldC Oximetry 97 % 10/22/2017 8:45am BP Systolic Sitting Right Arm 99 mmHg BP Diastolic Sitting Right Arm 67 mmHg Body Temperature 98.6 F Heart Rate 60 /min Height 69 inches 5'9" Weight 153.00 lb BMI (Body Mass Index) 22.6 kg/m2 BSA (Body Surface Area) 1.84 m2 [place] body weight in kilograms 66 kg O2 % BldC Oximetry 96 % 10/08/2017 10:19am BP Systolic Sitting Left Arm 95 mmHg BP Diastolic Sitting Left Arm 67 mmHg Body Temperature 98.3 F Heart Rate 57 /min Respiratory Rate 17 /min Height 69 inches 5'9" Weight 152.00 lb BMI (Body Mass Index) 22.4 kg/m2 BSA (Body Surface Area) 1.84 m2 [place] body weight in kilograms 66 kg O2 % BldC Oximetry 98 % 01/15/2015 11:13am BP Systolic Sitting Right Arm 98 mmHg BP Diastolic Sitting Right Arm 61 mmHg Heart Rate 74 /min Height 69 inches 5'9" Weight 137.00 lb BMI (Body Mass Index) 20.2 kg/m2 BSA (Body Surface Area) 1.76 m2 04/05/2014 9:37am Height 66 inches 5'6" Weight 136.00 lb BMI (Body Mass Index) 21.9 kg/m2 BSA (Body Surface Area) 1.70 m2 03/25/2012 10:49am BP Systolic Sitting Left Arm 104 mmHg BP Diastolic Sitting Left Arm 60 mmHg Height 67 inches 5'7" Weight 139.00 lb BMI (Body Mass Index) 21.8 kg/m2 Results Test Date Facility Test Result H/L Range Note Urine Dipstick 06/22/2018 [facility] Ua Color Yellow Yellow Ua Clarity Clear Clear Ua Leuko Negative Negative Ua Nitrite Negative Negative Ua Urobilinogen 0.2 0.2 - 1.0 E.U./dL Ua Protein Negative Negative Ua PH 6.0 Low 6.5-7.5 Ua Blood Negative Negative Ua Specific [place] 1.020 1.010-1.030 Ua Ketones Negative Negative Ua Bilirubin Negative Negative Ua Glucose Negative Negative Basic Metabolic Panel 05/03/2018 [facility] Glucose 84 mg/dL Normal 74-106 [address] [place] [address] [phone] BUN 10 mg/dL Normal 7-18 Creatinine 0.8 mg/dL 0.6-1.3 Glom Filtration Rate, Estimate >60 mL/min >60 If >60 mL/min >60 2 BUN/Creat 12.5 ratio Sodium 140 mmol/L Normal 136-145 Potassium 4.0 mmol/L Normal 3.5-5.1 Chloride 106 mmol/L Normal 98-107 Carbon Dioxide 30 mmol/L Normal 21-32 Anion Gap 4 mEq/L Low 8-16 Calcium 8.3 mg/dL Low 8.5-10.1 Urine Culture 04/22/2018 [facility] Urine Culture MIXED URETHRAL F <SEE 3 [address] [employer] [facility] [employer] NOTE> [place] [address] [phone] Quantity > 100,000 CFU/mL 4 Ua RFX Micro & Culture 04/22/2018 [facility] Urine Color YELLOW Yellow II [address] [place] [address] [phone] Urine Clarity CLEAR Clear Urine Glucose - Dipstick NEGATIVE mg/dL Negative Urine Bilirubin - Dipstick NEGATIVE Negative Urine Ketone NEGATIVE mg/dL Negative Urine Specific Ste[place]uer <=1.005 Low 1.010-1.030 Urine Blood NEGATIVE Negative Urine PH 6.0 Low 6.5-7.5 Urine Protein - Dipstick NEGATIVE mg/dL Negative Urine Urobilinogen - Dipstick 0.2 E.U./dL Normal 0.2-1.0 Urine Nitrite - Dipstick NEGATIVE Negative Urine Leuk Esterase NEGATIVE Negative Source: URINE, CLEAN CAT <SEE NOTE> 5 1 N39.0 2 Note: Persistent reduction for 3 months or more in an eGFR <60 mL/min/1.73 m2 defines CKD. Patients with eGFR values >/=60 mL/min/1.73 m2 may also have CKD if evidence of persistent proteinuria is present. The original MDRD equation for estimated GFR is not valid for patients less than 18 years of age. Additional information may be found at www.kdoqi.org. 3 MIXED URETHRAL ROSETTE 4 > 100,000 CFU/mL SPECIMEN IS A MIX OF GRAM NEGATIVE AND GRAM POSITIVE ORGANISMS. UNABLE TO DETERMINE WHICH ORGANISMS ARE FROM THE URINARY TRACT OR THE RESULT OF SKIN VAGINAL PERIANAL CONTAMINATION DURING COLLECTION. SUGGEST REPEAT SPECIMEN IF CLINICALLY INDICATED. 5 URINE, CLEAN CATCH Procedures Date Code Description Status 06/22/2018 69107 Cystoscopy Completed 11/05/2017 77438 Radiology, Elbow Complete Completed 06/23/2016 49398 Echocardiogram Complete Completed 08/28/2015 82813 Nerve Conduction 5-6 Studies Completed 08/28/2015 58320 Needle Electromyography Complete, Five Or More Muscles Completed Studied 07/05/2015 24768 Radiology, Foot, Complete-3 Views Completed 07/05/2015 90629 Radiology, Foot, Complete-3 Views Completed 01/15/2015 09966 Radiology, Ankle Complete Completed 03/08/2014 90020 Radiology, Knee 3 Views Completed 02/24/2014 47105 Radiology, Ankle Complete Completed 06/21/2013 41692 Radiology, Shoulder: Two Views (Sso) Completed 06/21/2013 66863 Radiology, Shoulder: Two Views (Sso) Completed 05/20/2013 30107 Anesthesia, Delivery Completed 08/23/2012 57500 Radiology, Ankle Complete Completed 07/09/2012 83814 Fracture closed distal fib w/o manipulation Completed Encounters Type Date Location Provider Dx Diagnosis Office Visit 06/22/2018 9:00a Urology Tayo Branch, N32.81 Overactive bladder M.D. N39.0 Urinary tract infection, site not specified N94.10 Unspecified dyspareunia Office Visit 05/20/2018 8:45a Urology Tayo Branch, N32.81 Overactive bladder M.D. N39.0 Urinary tract infection, site not specified Office Visit 04/22/2018 8:45a Urology Tayo Branch, N39.0 Urinary tract M.D. infection, site not specified N32.81 Overactive bladder Office Visit 11/05/2017 1:30p Orthopaedic Office Sg Bhavana, M25.521 Pain in PA right elbow S63.521D Sprain of radiocarpal joint of right wrist, subs encntr S50.01xA Contusion of right elbow, initial encounter Office Visit 10/22/2017 Orthopaedic Bhavana Bettencourt, S63.521A Sprain of 9:00a Office [place] radiocarpal joint of right wrist, init encntr S60.211A Contusion of right wrist, initial encounter Office Visit 10/08/2017 10:00a Orthopaedic Office Rubens Dorado, M25.531 Pain in right M.D. wrist Office Visit 09/10/2015 1:30p Orthopaedic Office Rubens Dorado, M25.571 Pain in right M.D. ankle and joints of right foot Office Visit 07/05/2015 11:15a Orthopaedic Office Rubens Dorado, M25.571 Pain in right M.D. ankle and joints of right foot M25.572 Pain in left ankle and joints of left foot Office Visit 03/06/2015 Rubens Westbrook, M25.571 Pain in right 1:00p Office M.D. ankle and joints of right foot Office Visit 01/15/2015 Rubens Westbrook, M25.571 Pain in right 11:15a Office M.D. ankle and joints of right foot Office Visit 04/05/2014 Surgical Office Genet, 794.8 Liver Study 9:30a Becky Ceron M.D. Office Visit 03/08/2014 Kendall Perez 719.46 Pain Joint 10:00a Holly Horan MD, FACS Lower Leg 726.60 Enthesopathy Of Knee, Unspecified Office Visit 02/24/2014 Kendall Perez 726.90 Enthesopathy 11:15a Holly Horan MD, FACS Unspec Site 734 Flat Foot 824.2 FX Ankle Lateral Malleolus Closed Office Visit 06/21/2013 10:30a Orthopaedic Office Cindy Goddard 726.10 Bursae & Tendon S., RPAC Disorders Shoulder Region Unspec 719.41 Pain Joint Shoulder Region Office Visit 03/25/2012 11:00a Orthopaedic Office Dilshad, 847.0 Sprains & Strains Daryn Tee MD Neck Office Visit 02/20/2009 10:30a Orthopaedic Office Awa, 723.4 Brachial Neuritis Scott Dorsey MD Or Radiculitis NOS 726.90 Enthesopathy Unspec Site Plan of Treatment Future Appointment(s):10/03/2019 2:00 pm - Tayo Branch M.D. at Urology
[2018-10-11 16:11] VITALS: BP 98/61
--- NOTE | 2018-10-11 16:40 | UC ---
Lower Extremity/Ankle HPI - HPI Summary HPI Summary: Pt c/o sudden onset of right ankle pain after "rolling" right ankle while walking and stepped in a hole in the ground today. Pt has hx of a "type of marfan's syndrome" and has fractured right ankle previously. - History of Current Complaint Chief Complaint: UCLowerExtremity Stated Complaint: RIGHT ANKLE INJURY Time Seen by Provider: 10/11/18 15:59 Hx Obtained From: Patient Hx Last Menstrual Period: 09/13/18 ?: No Onset/Duration: Sudden Onset, Still Present Severity Initially: Moderate Severity Currently: Moderate Pain Intensity: 4 Aggravating Factor(s): Standing, Ambulation Alleviating Factor(s): Rest, Elevation Able to Bear Weight: Yes - with cam boot on - Risk Factors Gout Risk Factors: Negative DVT Risk Factors: Negative Septic Arthritis Risk Factor: Negative - Allergies/Home Medications Allergies/Adverse Reactions: Allergies Allergy/AdvReac Type Severity Reaction Status Date / Time clavulanic acid Allergy Difficulty Verified 02/09/18 09:19 Breathing/Wheezing hydrocodone Allergy Shortness Verified 01/03/18 14:38 of Breath Iodine and Iodide Containing Allergy Hives Verified 01/03/18 14:38 Produc Penicillins Allergy Rash Verified 01/03/18 14:38 sulfamethoxazole AdvReac Vaginal Verified 02/09/18 09:19 [From Bactrim] "Discomfort" and "Heat" trimethoprim [From Bactrim] AdvReac Vaginal Verified 02/09/18 09:19 "Discomfort" and "Heat" Home Medications: Home Medications "Bladder Muscle Relaxer" 1 tab PO DAILY 10/11/18 [History] Ginkgo Biloba [place] Extract [Ginkgo Biloba] 30 mg PO 10/11/18 [History] Nitrofurantoin Monohyd/M-Cryst [Macrobid 100 mg Capsule] 100 mg PO DAILY [History Confirmed 10/11/18] PMH/Surg Hx/FS Hx/Imm Hx Previously Healthy: Yes - has marfans - Surgical History Surgical History: Yes Surgery Procedure, Year, and Place: CSECTION X 2, TUBAL - Family History Known Family History: Positive: Cardiac Disease - Social History Occupation: Employed Full-time Lives: With Family Alcohol Use: None Substance Use Type: None Smoking Status (MU): Former Smoker Length of Time of Smoking/Using Tobacco: 1 2 - 3 PPD x 19 Years Have You Smoked in the Last Year: No When Did the Patient Quit Smoking/Using Tobacco: ~2009 Review of Systems All Other Systems Reviewed And Are Negative: Yes Constitutional: Positive: Negative Skin: Positive: Negative Eyes: Positive: Negative ENT: Positive: Negative Respiratory: Positive: Negative Cardiovascular: Positive: Negative Gastrointestinal: Positive: Negative Genitourinary: Positive: Negative Motor: Positive: Decreased ROM - right ankle Neurovascular: Positive: Negative Musculoskeletal: Positive: Arthralgia, Decreased ROM, Myalgia - right ankle Neurological: Positive: Negative Psychological: Positive: Negative Is Patient Immunocompromised?: No Physical Exam Triage Information Reviewed: Yes Appearance: Pain Distress - mild Vital Signs: Initial Vital Signs Temp 97.5 F 10/11/18 16:03 Pulse 58 10/11/18 16:03 Resp 18 10/11/18 16:03 BP 98/61 10/11/18 16:03 Pulse Ox 100 10/11/18 16:03 Vital Signs Reviewed: Yes Eye Exam: Normal ENT Exam: Normal Dental Exam: Normal Neck exam: Normal Respiratory: Positive: No respiratory distress Musculoskeletal: Positive: ROM Limited @ - right ankle Neurological Exam: Normal Psychological Exam: Normal Skin Exam: Normal Diagnostics - Radiology No standard instances Radiology Interpretation Completed By: Radiologist - IMPRESSION: NO EVIDENCE FOR FRACTURE. Lower Extremity Course/Dx - Differential Dx/Diagnosis Differential Diagnosis/HQI/PQRI: Fracture (Closed), Sprain Provider Diagnosis: Right ankle sprain Discharge - Sign-Out/Discharge Documenting (check all that apply): Patient Departure All imaging exams completed and their final reports reviewed: Yes - Discharge Plan Condition: Stable Disposition: HOME Patient Education Materials: Ankle Sprain (ED), Sciatica (ED), Lower Back Exercises (ED) Referrals: Harshal Corrigan MD [Medical Doctor] - If Needed Nydia Jesus MD [Primary Care Provider] - If Needed - Billing Disposition and Condition Condition: STABLE Disposition: Home
== END 2018-10-11 17:15 | disposition home or self-care (01) ==
LOC: UCCORT 15:45
DX: S93.401A Sprain of unspecified ligament of right ankle, initial encounter (principal); W17.2XXA Fall into hole, initial encounter; Y93.01 Activity, walking, marching and hiking; Y92.9 Unspecified place or not applicable; Q87.40 Marfan syndrome, unspecified; Z87.891 Personal history of nicotine dependence
CPT/HCPCS: 99211; G0463

== ENCOUNTER 2019-01-19 12:16 | Emergency (ER) | payer OTHER ==
[2019-01-19 12:28] VITALS: BP 107/67
--- NOTE | 2019-01-19 12:52 | UC ---
Throat Pain/Nasal Ran HPI - HPI Summary HPI Summary: 38-year-old woman comes in with a chief complaint of upper respiratory tract infection symptoms for one day. Set of runny nose sore throat some chest congestion. Is also been having cold chills and hot flashes. When she has cold chills flashes she does feel lightheaded. Throats worse with swallowing. No fevers measured. She does get occasional chest pain that comes and goes usually after taking deep breaths. Denies any racing heart. - History of Current Complaint Chief Complaint: UCRespiratory Stated Complaint: NAUSEA/CHEST CONGESTION Time Seen by Provider: 01/19/19 12:34 Hx Last Menstrual Period: 12/26/18 Pain Intensity: 1 - Allergies/Home Medications Allergies/Adverse Reactions: Allergies Allergy/AdvReac Type Severity Reaction Status Date / Time clavulanic acid Allergy Difficulty Verified 01/19/19 12:29 Breathing/Wheezing hydrocodone Allergy Shortness Verified 01/19/19 12:29 of Breath Iodine and Iodide Containing Allergy Hives Verified 01/19/19 12:29 Produc Penicillins Allergy Rash Verified 01/19/19 12:29 sulfamethoxazole AdvReac Vaginal Verified 01/19/19 12:29 [From Bactrim] "Discomfort" and "Heat" trimethoprim [From Bactrim] AdvReac Vaginal Verified 01/19/19 12:29 "Discomfort" and "Heat" PMH/Surg Hx/FS Hx/Imm Hx Previously Healthy: Yes - Surgical History Surgical History: Yes Surgery Procedure, Year, and Place: CSECTION X 2, TUBAL - Family History Known Family History: Positive: Cardiac Disease - Social History Alcohol Use: None Substance Use Type: None Smoking Status (MU): Former Smoker Length of Time of Smoking/Using Tobacco: 1 1/2 - 3 PPD x 19 Years Have You Smoked in the Last Year: No When Did the Patient Quit Smoking/Using Tobacco: ~2009 Review of Systems All Other Systems Reviewed And Are Negative: Yes Constitutional: Positive: Other - SEE HPI Skin: Positive: Negative Eyes: Positive: Negative ENT: Positive: Sore Throat, Nasal Discharge, Sinus Congestion Respiratory: Positive: Cough Cardiovascular: Positive: Chest Pain Gastrointestinal: Positive: Negative Motor: Positive: Negative Neurovascular: Positive: Negative Musculoskeletal: Positive: Negative Neurological: Positive: Negative Psychological: Positive: Negative Is Patient Immunocompromised?: No Physical Exam Triage Information Reviewed: Yes Appearance: Well-Appearing, No Pain Distress, Well-Nourished Vital Signs: Initial Vital Signs Temp 98.3 F 01/19/19 12:22 Pulse 81 01/19/19 12:22 Resp 18 01/19/19 12:22 BP 107/67 01/19/19 12:22 Pulse Ox 99 01/19/19 12:22 Vital Signs Reviewed: Yes Eye Exam: Normal Eyes: Positive: Conjunctiva Clear ENT: Positive: Pharyngeal erythema, TMs normal Neck: Positive: Supple Respiratory: Positive: Lungs clear, Normal breath sounds, No respiratory distress Cardiovascular: Positive: RRR Musculoskeletal: Positive: Strength Intact, ROM Intact Neurological: Positive: Alert, Muscle Tone Normal Psychological: Positive: Age Appropriate Behavior Skin Exam: Normal Throat Pain/Nasal Course/Dx - Course Course Of Treatment: We discussed the episodes of chest pain. Patient reports 4 years ago she had chest pain was admitted to the hospital and all her cardiac testing was normal and she was told that it was anxiety. We discussed signs and symptoms of cardiac causes of chest pain and let the patient know that if her symptoms did not improve or worsened or if she had any other concerns she needed to go the emergency department further evaluation. DISCUSSED VIRAL VERSES BACTERIAL INFECTIONS AND THE ROLE OF ANTIBIOTICS. THE PATIENT PREFERS TO BE ON ANTIBIOTICS AT THIS TIME. - Differential Dx/Diagnosis Provider Diagnosis: Upper respiratory infection Discharge ED - Sign-Out/Discharge Documenting (check all that apply): Patient Departure All imaging exams completed and their final reports reviewed: No Studies - Discharge Plan Condition: Stable Disposition: HOME Prescriptions: Cephalexin CAP* [Keflex CAP*] 500 mg PO TID #30 cap Patient Education Materials: Upper Respiratory Infection (ED) Referrals: Nydia Jesus MD [Primary Care Provider] - Additional Instructions: FOLLOW UP WITH YOUR DOCTOR IF NOT COMPLETELY IMPROVED. GET REEVALUATED SOONER IF NOT IMPROVING OR YOUR CONDITION WORSENS OR ANY QUESTIONS OR CONCERNS. - Billing Disposition and Condition Condition: STABLE Disposition: Home
== END 2019-01-19 13:22 | disposition home or self-care (01) ==
LOC: UCCORT 12:16
DX: J06.9 Acute upper respiratory infection, unspecified (principal); Z88.0 Allergy status to penicillin; Z88.5 Allergy status to narcotic agent; Z91.09 Other allergy status, other than to drugs and biological substances; Z88.2 Allergy status to sulfonamides; Z87.891 Personal history of nicotine dependence
CPT/HCPCS: 87651; 99212; G0463